=== PATIENT | female | born 1965 | race Hispanic/Latino ===

== ENCOUNTER 2016-12-17 19:01 | Inpatient (IN) | payer SELFPAY ==
[~2016-12-17 19:01] MED LIST: ISOVUE-370 76%-LOCM 1 ML ONE
[2016-12-17] MEDS ORDERED: Ondansetron HCl/PF 4 MG/2 ML Vial ONE (20:53)
--- NOTE | 2016-12-17 21:11 | RAD ---
AP VIEW OF THE CHEST: 12/17/16 INDICATION: History of nausea and right facial numbness and tingling with chest pain. FINDINGS: The lungs are clear. The cardiomediastinal silhouette is within normal limits. No acute osseous abno rmality is evident. IMPRESSION: No acute cardiopulmonary abnormality. POS: [facility]
[2016-12-17 21:23] LABS: #Basophils 0.1 thou/uL (0.0-0.2); #Eosinphils 0.2 thou/uL (0.0-0.7); #Lymphocytes 2.8 thou/uL (1.20-3.40); #Monocytes 0.6 thou/uL (0.11-0.59); #Neutrophils 8.7 thou/uL (1.40-6.50); %Basophils 0.5 % (0.0-1.0); %Eosinophils 1.6 % (0.0-10.0); %Lymphocytes 22.4 % (21.0-51.0); %Monocytes 5.2 % (0.0-10.0); Hematocrit 40.6 % (36.0-47.0); Mean Platelet Volume 8.4 fL (7.4-10.4); Red Blood Cell (RBC) Count 4.72 mill/uL (4.20-5.40); White Blood Cell (WBC) Count 12.4 thou/uL (4.8-10.8)
[2016-12-17 21:45] LABS: ALT (SGPT) 20 U/L (8-55); AST (SGOT) 16 U/L (5-34); Alkaline Phosphatase 95 U/L (40-150); Anion Gap 15 mmol/L (10-20); BUN (Urea Nitrogen) 9 mg/dL (7.0-18.7); Bilirubin, Total 0.4 mg/dL (0.2-1.2); CK (CPK) 64 U/L (29-168); Calc. Creatinine Clearance 0 mL/min (70-130); Calcium 9.3 mg/dL (7.8-10.44); Carbon Dioxide 24 mmol/L (22-29); Chloride 107 mmol/L (98-107); Estimated GFR-MDRD 90; Protein, Total 7.1 g/dL (6.0-8.3)
[2016-12-17 21:48] LABS: Troponin I Less than 0.010 ng/mL (< 0.028)
--- NOTE | 2016-12-17 22:25 | CT ---
NONCONTRAST CT OF THE BRAIN: 12/17/16 INDICATION: 51-year-old female with nausea and right sided facial numbness and tingling, now extending to involv e the entire aspect of the right side of the patient's body. Patient is having right parietal and oc cipital headaches. FINDINGS: No acute infarct, hemorrhage, or hydrocephalus is present. The septum pellucidum and third ventricle are midline. The skull and extracranial soft tissues are within normal limits. IMPRESSION: No acute intracranial abnormality. POS: [facility]
--- NOTE | 2016-12-17 23:34 | CT ---
CTA AORTIC DISSECTION PROTOCOL 12/17/16 INDICATION: Chest pain. TECHNIQUE: Multiple CTA images were obtained of the chest and abdomen utilizing a CTA dissection protocol. 3D r eformatted images were constructed from the raw data. FINDINGS: No acute aortic stenosis, occlusion, or aneurysmal formation is evident. The great vessels of the ne ck appear within normal limits. No central pulmonary embolus is evident. The lungs are clear. The celiac, SMA, and renal arteries are widely patent. 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 The I MA is patent. The common iliac artery is widely patent. There is fatty infiltration of the liver. Spleen, pancreas, adrenal glands, and kidneys are normal a ppearing. There is normal appendix in the right lower quadrant. No free fluid is evident. Scattered degenerative and osteoarthritic change. IMPRESSION: 1. No aortic stenosis, occlusion or aneurysmal formation demonstrated. 2. Fatty liver. 3. Colonic diverticulosis. POS: [facility]
[2016-12-18] MEDS ORDERED: Sodium Chloride 0.9% 1,000 ML IV SCH (00:30)
--- NOTE | 2016-12-18 00:43 | PDOC.EVN ---
Event Note - Event Note Event Note: [id number] h&p dictated 1. RT jaylen eheadache 2. uncontrolled htn 3. nausea plan see orders
[2016-12-18 01:23] VITALS: BMI 41.0
[2016-12-18] MEDS: traMADol HCl 50 MG TAB PO PRN ×2 (02:42→08:16)
--- NOTE | 2016-12-18 07:21 | HP ---
DATE OF ADMISSION: 12/18/2016 CHIEF COMPLAINT: Right-sided numbness, headache. HISTORY OF PRESENT ILLNESS: Patient is a 51-year-old female with no significant past medical history, now came to the hospital because of uncontrolled hypertension. Patient says that this last few days, she is having elevated blood pressure. Blood pressure at home around 160/93, and she is having headache. Headache is a dull, fullness kind of headache in right side of the face radiating to the occipital region, currently 3/10. Patient also complaints of right-sided facial numbness and fullness and right-sided body aches also. Denies any nausea and vomiting at this time, but complains of some nausea at home. Denies any fever, denies any chills, denies any chest pain. She complaints of dizziness as if room spinning around. Denies syncope. PAST MEDICAL HISTORY: None. PAST SURGICAL HISTORY: Tubal ligation. SOCIAL HISTORY: Denies smoking, denies alcohol, and denies any drugs. FAMILY HISTORY: Positive for heart problems. MEDICATIONS: Reviewed. REVIEW OF SYSTEMS: Constitutional: Denies any fever, denies any chills. Eyes : Denies vision problems. Ears: Denies any hearing loss. Neck: Denies any neck pain. Cardiovascular: Denies any chest pain, denies any palpations. Respiratory: Denies any cough, denies any sputum production. Gastrointestinal : Positive for nausea. Genitourinary: Denies dysuria. Musculoskeletal: Positive for right-sided body aches. Cranial nerve system: Positive for headache. Positive for dizziness. Psychiatric: Denies anxiety. Integumentary : Denies any rash. All other review of systems are reviewed and are negative. PHYSICAL EXAMINATION: CONSTITUTIONAL/VITAL SIGNS: At the time of H and P performed, blood pressure is 140/70, afebrile, respiration rate 18, pulse ox 97%. GENERAL: The patient appears comfortable. HEENT: Pupils are equal, round, and reactive. Anterior nares patent. Nose normal. Ears normal. Teeth intact. Tongue is moist. NECK: Supple, no JVD. CARDIOVASCULAR: S1, S2 present. Regular rate and rhythm. No murmurs, no rubs , no gallops. RESPIRATORY: No wheezing, no rhonchi. Breath sounds bilaterally. GASTROINTESTINAL: Abdomen is soft, nontender, no guarding, no organomegaly, no masses felt. MUSCULOSKELETAL: No edema. CRANIAL NERVE SYSTEM: Awake, follows commands. Strength intact. She complains of some numbness, but otherwise sensory intact. PSYCHIATRIC: Mood is appropriate at this time. INTEGUMENT: No rashes seen. LABORATORY DATA: At the time of H\T\P performed, white count 12.4, hemoglobin 13.4, platelet count is 309,000. BMP showed sodium 142, potassium 3.7, chloride of 104, CO2 of 24, BUN 9, creatinine 0.69. Creatine kinase 64, CK-MB 0.5, troponin less than 0.010. ASSESSMENT AND PLAN: The patient is a 51-year-old female. 1. Uncontrolled hypertension, new onset. Plan is to start the patient on Coreg 6.25 b.i.d. and also plan to start patient on hydralazine 25mg q.8 hours. We will monitor blood pressure closely. 2. Right-sided headache and numbness. Plan to do MRI brain and carotid ultrasound also, we will consult Neurology. Will monitor the patient closely. We will do neuro check q.[address] head, no acute stroke. 3. Nausea, p.r.n. antiemetics. The case was discussed in detail with the patient and patient's son over the phone also. MADAN
[2016-12-18] MEDS ORDERED: Heparin 5,000 UNITS/ML VIAL SC SCH (09:00)
[2016-12-18] MEDS ORDERED: Aspirin 81 mg Enteric Coated Tablet PO SCH (09:00)
[2016-12-18] MEDS ORDERED: Ondansetron HCl/PF 4 MG/2 ML Vial IVP PRN (09:10)
[2016-12-18] MEDS ORDERED: Ondansetron ODT 4 MG TAB PO PRN (09:10)
[2016-12-18] MEDS ORDERED: Promethazine HCl 25 MG in Sodium Chloride 0.9% 50 ML IVPB PRN (10:43)
[2016-12-18] MEDS ORDERED: diphenhydrAMINE HCl 50 MG/ML 1 ML VIAL IVP SCH (11:00)
[2016-12-18] MEDS ORDERED: Ketorolac Tromethamine 30 MG/ML VIAL IVP SCH (11:00)
--- NOTE | 2016-12-18 14:45 | PDOC.EVN ---
Event Note - Event Note Event Note: Patient seen and examined. Await MRI.
[2016-12-18 15:44] VITALS: BP 131/68; TEMP 97.8
--- NOTE | 2016-12-18 16:25 | MRI ---
PRE AND POSTCONTRAST ENHANCED MRI IMAGES OF THE BRAIN AND IACS 12/18/16 HISTORY: 51-year-old female with history of numbness, facial tingling, and right occipital and parietal heada ches. Multiplanar and multisequence pre and postcontrast enhanced MRI images of the brain and IACs demonst rate the brain to be unremarkable. No evidence of intracranial masses, hemorrhages, strokes or contu sions seen. Ventricles are of normal size. No evidence of masses or lesions seen in the internal aud itory canals. Vestibule and semicircular canals are unremarkable. Cochlea is unremarkable. No signif icant evidence of enhancing intracranial mass lesion seen. IMPRESSION: Unremarkable pre and postcontrast enhanced MRI images of the brain and IACs. POS: [facility]
[2016-12-18] MEDS ORDERED: Ketorolac Tromethamine 30 MG/ML VIAL IVP PRN (17:00)
[2016-12-18] MEDS ORDERED: Valproate Sodium 500 MG in Sodium Chloride 0.9% 100 ML IVPB SCH (17:00)
--- NOTE | 2016-12-18 17:08 | DIS ---
DATE OF DISCHARGE: 12/18/2016 DISCHARGE DISPOSITION: Home. FOLLOWUP: 1. Follow up with primary care physician, Dr. Deepti Chan in 1 week. Please note that patient has not seen primary care physician for a longtime. This will be a new PCP. 2. Follow up with Neurology as outpatient. ALLERGIES: The patient is allergic to DEMEROL, TYLENOL and ERYTHROMYCIN. The patient was seen and examined on the day of discharge. Denies any new complaints. Headache has somewhat improved after Toradol. BRIEF HOSPITAL COURSE: The patient is a 51-year-old female with no significant past medical history , who presented to the hospital with headache with right-sided numbness. Please refer to the histor y and physical dictated earlier today for further details. The patient was admitted to the hospital with a diagnosis of suspected stroke. An MRI of the brain was done that was negative for acute CVA. CT scan of the brain on admission was also negative. An echocardiogram has been done and report is pending at this time. Patient had mild leukocytosis at 1 2.4 with normal temperature and other vital signs. It is unlikely that the WBC counts are secondary to infection in origin. Her CT dissection protocol was also negative. She was evaluated by Neurol ogcassandra, Dr. Lundberg. According to Dr. Lundberg, symptoms are consistent with migraine. She has been cl eared by Neurology for discharge. The patient was advised to follow up with Neurology as outpatient . She was advised to monitor her blood pressure on a daily basis. DISCHARGE MEDICATIONS: 1. Amlodipine 2.5 mg daily. 2. Aspirin 81 mg daily. 3. Lipitor 10 mg daily. 4. Calcium 1 tablet daily. 5. Magnesium 1 tablet daily. 6. Multivitamin daily. 7. Clonidine as needed. IMPRESSION: 1. Right-sided headache with numbness secondary to suspected transient ischemic attack. MRI of the brain was negative. The patient will be started on low dose aspirin with statins. Lifestyle modif ication was emphasized. Her fasting lipid profile showed LDL of 102 with cholesterol 177, triglycer juna 146. 2. Suspected migraine. Patient was advised to follow up with Neurology as an outpatient. 3. Elevated blood pressure with no diagnosis of hypertension. Patient will monitor her blood press ure on a daily basis. She was even given a prescription for amlodipine if her blood pressure remain s elevated over 140. 4. Leukocytosis, unlikely to be infectious. 5. Chronic kidney disease stage 2. 6. Morbid obesity with a BMI of 41. Plan of care was discussed with the patient and the family at the bedside. They stated андрей g. The patient was advised to follow up on the echocardiogram report.
--- NOTE | 2016-12-18 17:34 | CON ---
DATE OF CONSULTATION: 12/18/2016 NEUROLOGY CONSULTATION CONSULTING PHYSICIAN: Hospitalist Service. IMPRESSION: Probable migraine. PLAN: 1. Toradol 30 mg IV. 2. Benadryl 25 mg IV. 3. The patient will be discharged home. HISTORY OF PRESENT ILLNESS: Ms. Huitron is a 51-year-old female with no past history oth er than some episodic headaches. She has been experiencing a more severe headache than her typical headaches that she has had in the past. She had some associated nausea, light sensitivity, sound se nsitivity, dizziness, and became concerned about the severity of the pain. She went and took blood pressure at the pharmacy and noted that the diastolic was a bit high for her at 92. She came into [facility] emergency room last night for evaluation. She had a CT of the brain done which was negative. Sh e also had a CT of the aorta, which was unremarkable. Her vital signs have been stable since admiss [facility]. She is afebrile. She threw up earlier this morning. She is still complaining of some headach e and dizziness. PAST MEDICAL HISTORY: Otherwise, negative. ALLERGIES: DEMEROL. FAMILY HISTORY: Noncontributory. SOCIAL HISTORY: No tobacco or alcohol use. REVIEW OF SYSTEMS: No other focal neurologic complaints. PHYSICAL EXAMINATION: GENERAL: She is an overweight middle-aged woman sitting at the bedside in mild distress. VITAL SIGNS: Blood pressure 108/82, pulse 73, respirations 14, and temperature 98.2. HEENT: Pupils equal and reactive. Conjunctivae clear. Oropharynx clear. NECK: Supple. NEUROLOGIC: She is alert and appropriate. Her speech is fluent and clear. Her exam is nonfocal. Reflexes were 1+. SUMMARY: Given the overall symptom complex with a negative CT scan and normal vital signs, I suspec t this is migraine. I can treat her and release.
[2016-12-18] MEDS ORDERED: Atorvastatin Calcium 40 MG TAB PO SCH (21:00)
[2016-12-19] MEDS ORDERED: Carvedilol 6.25 MG TAB PO SCH (08:00)
== END 2016-12-18 18:45 | disposition home or self-care (01) | DRG 69 ==
LOC: ERS 19:01 → 2SE 12-18 00:48
PROVIDERS: ADMIT Internal Medicine; ATTEND Internal Medicine
DX: G45.9 Transient cerebral ischemic attack, unspecified (principal); Z68.41 Body mass index [BMI] 40.0-44.9, adult; G43.909 Migraine, unspecified, not intractable, without status migrainosus; R03.0 Elevated blood-pressure reading, without diagnosis of hypertension; E66.01 Morbid (severe) obesity due to excess calories; N18.2 Chronic kidney disease, stage 2 (mild)
CPT/HCPCS: 36415; 70450; 70553; 71010; 71275; 80053; 80061; 82550; 82553; 84484; 85025; 85652; 86140; 93005; 93306; A4216; G9168-GN-CI; G9169-GN-CH; J1200; J1644; J1885; J2405; J2550; J7050

== ENCOUNTER 2018-01-26 16:55 | Emergency (ER) | payer SELFPAY ==
[2018-01-26] MEDS ORDERED: Ibuprofen 200 MG TAB ONE (17:34)
== END 2018-01-26 17:38 | disposition home or self-care (01) ==
LOC: ERS 16:55
DX: H60.91 Unspecified otitis externa, right ear (principal); I10 Essential (primary) hypertension
CPT/HCPCS: 99283

== ENCOUNTER 2019-02-01 18:31 | Observation (INO) | payer BC, SELFPAY ==
[2019-02-01] MEDS ORDERED: Ketamine 50 MG/ML (10ML VIAL) ONE (19:00)
[2019-02-01] MEDS ORDERED: Fentanyl 100 MCG/2 ML VIAL ONE (19:00)
[2019-02-01] MEDS ORDERED: Ondansetron PF 4 MG/2 ML Vial ONE (19:00)
--- NOTE | 2019-02-01 19:30 | RAD ---
EXAM: 2 views of the left ankle HISTORY: Ankle pain COMPARISON: None FINDINGS: 2 views of the left ankle shows a fracture of the medial malleolus and posterior malleolus of the tibia. There is subluxation of the tibiotalar joint. A distal fibular fracture is seen. Surrounding soft tissue swelling is seen. No degenerative changes are present. IMPRESSION: Fracture subluxation of the left ankle as above.
--- NOTE | 2019-02-01 19:48 | RAD ---
EXAM: 2 views of the left ankle HISTORY: Ankle fracture COMPARISON: None FINDINGS: 2 views of the left ankle shows the patient is status post interval reduction of the fractu re subluxation of the ankle joint. There is better alignment of the fracture and tibiotalar joint. IMPRESSION: Reduction of left ankle fracture
[2019-02-01 20:20] LABS: #Lymphocytes 1.7 thou/uL (1.20-3.40); #Monocytes 0.4 thou/uL (0.11-0.59); #Neutrophils 4.1 thou/uL (1.40-6.50); %Basophils 0.5 % (0.0-1.0); %Eosinophils 0.7 % (0.0-10.0); %Neutrophils 65.8 % (42.0-75.0); Hemoglobin 12.9 g/dL (12.0-16.0); Mean Corpuscular HGB CONC 32.9 g/dL (32.0-36.0); Mean Corpuscular Hemoglobin 28.4 pg (27.0-31.0); Mean Corpuscular Volume 86.3 fL (78.0-98.0); Mean Platelet Volume 8.9 fL (7.4-10.4); Platelet Count 238 thou/uL (130-400); RBC Distribution Width 13.3 % (11.5-14.5); Red Blood Cell (RBC) Count 4.55 mill/uL (4.20-5.40); White Blood Cell (WBC) Count 6.3 thou/uL (4.8-10.8)
[2019-02-01 20:29] LABS: INR-International Normal Ratio 0.9; PTT 26.3 SEC (22.9-36.1); Prothrombin Time 12.6 SEC (12.0-14.7)
--- NOTE | 2019-02-01 20:34 | RAD ---
EXAM: Single view of the chest HISTORY: Preoperative radiograph COMPARISON: 12/17/2016 FINDINGS: Single view of the chest shows a normal sized cardiomediastinal silhouette. There is no erika dence of consolidation, mass, or pleural effusion. The bones are unremarkable. IMPRESSION: No evidence of acute cardiopulmonary disease
[2019-02-01 20:42] LABS: ALT (SGPT) 19 U/L (8-55); AST (SGOT) 19 U/L (5-34); Alkaline Phosphatase 90 U/L (40-110); Anion Gap 18 mmol/L (10-20); BUN (Urea Nitrogen) 11 mg/dL (9.8-20.1); Bilirubin, Total 0.4 mg/dL (0.2-1.2); Calc. Creatinine Clearance 0 mL/min (70-130); Calcium 9.2 mg/dL (7.8-10.44); Carbon Dioxide 19 mmol/L (22-29); Chloride 108 mmol/L (98-107); Estimated GFR-MDRD 81; Globulin 2.8 g/dL (2.4-3.5); Glucose 113 mg/dL (70-105); Potassium 3.8 mmol/L (3.5-5.1); Protein, Total 6.8 g/dL (6.0-8.3); Sodium 141 mmol/L (136-145)
[2019-02-01] MEDS ORDERED: Dextrose 50% Abboject 50 ML SYRINGE SLOW IVP PRN (21:30)
[2019-02-01] MEDS ORDERED: Morphine 4 MG/ML VIAL SLOW IVP PRN (21:30)
[2019-02-01] MEDS ORDERED: Dextrose 5% in Water 1,000 ML IV PRN (21:30)
[2019-02-01] MEDS ORDERED: Sodium Chloride 0.9% 1,000 ML IV SCH (21:30)
[2019-02-01] MEDS ORDERED: hydrALAZINE 20 MG/ML VIAL SLOW IVP PRN (21:30)
[2019-02-01] MEDS ORDERED: Ondansetron PF 4 MG/2 ML Vial IVP PRN ×2 (21:30→21:35)
[2019-02-01] MEDS ORDERED: traMADol HCl 50 MG TAB PO PRN (21:35)
[2019-02-01] MEDS ORDERED: Cyclobenzaprine 10 MG TAB PO PRN (21:38)
[2019-02-01] MEDS: Lactated Ringer's 1,000 ML IV SCH (22:55)
[2019-02-01] MEDS: traMADol HCl 50 MG TAB PO PRN (22:55)
[2019-02-01 23:30] VITALS: BMI 31.6
[2019-02-01] MEDS: Ketorolac Tromethamine 30 MG/ML VIAL IVP SCH (23:46)
[2019-02-02] MEDS: Ketorolac Tromethamine 30 MG/ML VIAL IVP SCH ×4 (06:04→18:15)
[2019-02-02] MEDS ORDERED: CEFAZOLIN 2 GM in Premix Bag 1 BAG IVPB SCH (07:15)
--- NOTE | 2019-02-02 07:44 | HP ---
REQUESTING PHYSICIAN: Reed Donald MD CONSULTS: Champ Lott MD, Orthopedic Surgery. HISTORY OF PRESENT ILLNESS: This is a 53-year-old female, who presented to the emergency room with complaints of left ankle pain and deformity after falling while she was skating, participating in [employer]. The patient denies feeling weak , dizzy, or having any chest pain prior to falling. The patient denies hitting her head. The patient denies any other pain or injury. The patient last ate at approximately 5:00 p.m. today. The patient was evaluated in the emergency room and was found to have a left ankle fracture with subluxation. The patient was given conscious sedation with ketamine in the emergency room and her left ankle was reduced. The patient was then placed in a splint. The patient also received fentanyl and Zofran in the emergency room. REVIEW OF SYSTEMS: A 10-point review of systems is negative unless otherwise indicated in the above HPI. PAST MEDICAL HISTORY: Previous history of hypertension, not on any medications. HOME MEDICATIONS: Multivitamins only. PAST SURGICAL HISTORY: Tubal ligation. ALLERGIES: DEMEROL, ERYTHROMYCIN. SOCIAL HISTORY: Denies any drug use, denies any alcohol use, denies any tobacco use or smoking. OBJECTIVE: VITAL SIGNS: Blood pressure 138/78, pulse 68, respirations 20, temperature 98.6, SpO2 of 98% on room air. GENERAL: The patient is awake, alert, in no distress with minimal nausea after having conscious sedation. Middle-aged, well-appearing female. HEENT: Head is atraumatic, normocephalic. Normal range of motion of neck. Trachea midline. RESPIRATORY: Equal chest rise and fall. Good inspiratory and expiratory effort. Bilateral breath sounds clear. No wheezing, rales, or rhonchi. CARDIOVASCULAR: Regular rate, regular rhythm. No murmurs. ABDOMEN: Soft, nontender, nondistended. EXTREMITIES: Left lower extremity immobilized in a splint. Distal cap refill less than 2, normal sensation. Other extremities unremarkable. NEURO: No focal deficits. GCS 15. DIAGNOSTICS: 1. Left ankle x-ray, impression, fracture of the medial malleolus and posterior malleolus of the tibia. There is a subluxation of the tibiotalar joint. Distal fibular fracture is seen. Surrounding soft tissue swelling is seen. 2. Left ankle x-ray, post interval reduction of the fracture, subluxation of the ankle joint. Better alignment of the fracture and tibiotalar joint. 3. Chest x-ray, impression, no evidence of acute cardiopulmonary disease. LABORATORY DATA: WBC 6.3, RBC 4.55, hemoglobin 12.9, hematocrit 39.3, platelets 238. PT 12.6, INR 0.9, APTT 26.3. Sodium 141, potassium 3.8, chloride 108, creatinine 0.75, estimated GFR 81, BUN 11, glucose 113, calcium 9.2, AST 19, ALT 19, alkaline phos 90. A 12-lead EKG sinus rhythm, no ST or T-wave abnormalities. IMPRESSION: 1. Status post roller derby accident. 2. Left ankle fracture, status post reduction. 3. Acute traumatic pain. PLAN: We will admit the patient on the surgical floor. The patient will be n.p.o. after midnight and placed on IV maintenance fluids. Plan is for Dr. Lott to take patient to the OR for repair of the left ankle fracture in the morning. We will place a PT/OT consult to evaluate and treat postop. We will place the patient on a pain regimen. The patient most likely will be able to be discharged home after surgery. If pain is well controlled, the patient is able to ambulate safely. The plan was discussed with the patient and family, who agrees. The plan will be discussed with the attending after this dictation. Job ID: [id number] MTDD
[2019-02-02] MEDS: Lactated Ringer's 1,000 ML IV SCH ×2 (08:10→18:10)
--- NOTE | 2019-02-02 08:12 | CON ---
DATE OF CONSULTATION: 02/02/2019 This is Coco Thomas PA-C dictating a report for Champ Lott MD. REQUESTING PHYSICIAN: Trauma Services. CONSULTING PHYSICIAN: Dr. Cahmp Lott. REASON FOR CONSULTATION: Left ankle fracture. HISTORY OF PRESENT ILLNESS: This is a 53-year-old female, who presented to [facility] after an injury while roller derbying. The patient states that she went down and felt a pop in her left ankle. She was brought to our facility, where her main complaint was left ankle pain and deformity. Upon arrival in the emergency department, the patient was noted to have a left trimalleolar ankle fracture with subluxation. This was reduced by the emergency department physician and then splinted. Currently, at bedside, the patient states that she is comfortable in the splint. She denies any numbness or tingling. She denies any other injuries at the time of this fall. No head injury. No loss of consciousness. PAST MEDICAL HISTORY: Includes hypertension as well as gastroesophageal reflux disease. PAST SURGICAL HISTORY: Tubal ligation. SOCIAL HISTORY: The patient lives at home with family. She denies any alcohol, tobacco, or drug use. FAMILY HISTORY: Reviewed and noncontributory. ALLERGIES: INCLUDE DEMEROL AND ERYTHROMYCIN. REVIEW OF SYSTEMS: A 10-point review of systems conducted and otherwise negative except for stated above. PHYSICAL EXAMINATION: VITAL SIGNS: Temperature 98.3, pulse of 65, respiratory rate of 16, blood pressure of 131/67, and O2 saturations of 94 on room air. GENERAL: The patient is awake and alert. She is in no apparent distress. She is lying supine in bed. Her daughter is present at bedside. She is pleasant and cooperative with exam findings today. HEENT: Head is normocephalic and atraumatic. NECK: Supple. Trachea midline. LUNGS: Breathing nonlabored. EXTREMITIES: The left lower extremity was evaluated. There is a posterior and stirrup splint present to approximately mid calf. The patient is able to move her toes. She has intact sensation and capillary refill is 3 seconds. All other extremities were evaluated. No other injuries or acute deformities are noted. IMAGING STUDIES: Radiographic imaging available for review includes views of the ankle upon arrival to the emergency department showing a subluxed trimalleolar ankle fracture. Postreduction films show overall improved alignment of this trimalleolar ankle fracture. ASSESSMENT: Left ankle trimalleolar ankle fracture. PLAN: The patient has been n.p.o. overnight. Our plan is to take her to the OR for open reduction and internal fixation of this left ankle fracture. This is in order to restore function and promote ambulation. Risks, benefits, and alternatives discussed at length with the patient and her family today at bedside. They verbalized understanding and are amenable to this plan of care. We will proceed with surgery later this morning. Postoperatively, she will work with physical therapist for nonweightbearing to the left lower extremity. When she is able to ambulate and receives her IV postoperative antibiotics, she will be able to be discharged home. Once again, they are amenable to this plan of care. Job ID: [id number] MTDD
[2019-02-02] MEDS ORDERED: Midazolam HCl 2 mg/2 ml Vial ONE (08:26)
[2019-02-02] MEDS ORDERED: Fentanyl 100 MCG/2 ML VIAL ONE ×4 (08:26→13:50)
[2019-02-02] MEDS: Polyethylene Glycol 3350 17 GM Packet PO SCH (09:03)
[2019-02-02] MEDS ORDERED: Zolpidem Tartrate 5 MG TAB PO PRN (09:46)
[2019-02-02] MEDS ORDERED: traMADol HCl 50 MG TAB PO PRN ×2 (09:46)
[2019-02-02] MEDS ORDERED: Ropivacaine 0.2% 550 ML 550 ML NERVE BLCK SCH (09:46)
[2019-02-02] MEDS ORDERED: HYDROcodone/Acetaminophen 10/325 mg Tablet PO PRN ×2 (09:46)
[2019-02-02] MEDS ORDERED: Promethazine HCl 25 MG/ML VIAL IM PRN ×2 (09:46→13:19)
[2019-02-02] MEDS ORDERED: Ondansetron PF 4 MG/2 ML Vial IVP PRN (09:46)
[2019-02-02] MEDS ORDERED: Fentanyl 100 MCG/2 ML VIAL SLOW IVP PRN (09:47)
[2019-02-02] MEDS ORDERED: PHENYLEPHRINE-NS 100 MCG/ML 10 ML SYRINGE ONE (10:10)
[2019-02-02] MEDS ORDERED: Lidocaine 1% PF 5 ML VIAL ONE (10:10)
[2019-02-02] MEDS ORDERED: Ropivacaine 0.5% HCl/PF (150 MG/30 ML VIAL) ONE (10:10)
[2019-02-02] MEDS ORDERED: PROPOFOL 200 MG/20 ML VIAL ONE (10:10)
[2019-02-02] MEDS ORDERED: ePHEDrine/0.9% NaCl/PF SYRINGE 50 mg/10 ml ONE (10:10)
[2019-02-02] MEDS ORDERED: Ondansetron PF 4 MG/2 ML Vial ONE (10:10)
[2019-02-02] MEDS ORDERED: Bupivacaine HCl 0.5%/Epinephrine 1:200,000/PF 30 ml Vial ONE (10:10)
[2019-02-02] MEDS ORDERED: Dexamethasone 20 MG/5 ML VIAL ONE (10:10)
[2019-02-02] MEDS ORDERED: Neomycin-Polymyxin 1 ML AMP ONE (11:40)
--- NOTE | 2019-02-02 13:05 | RAD ---
EXAM: 3 views of the left ankle HISTORY: Ankle fracture COMPARISON: 02/01/2019 FINDINGS: 3 views of the left ankle shows the patient is status post ORIF of the distal fibula with a plate and screws. 2 screws span the fracture of the medial malleolus. There is normal alignment of the ankle mortise. No perihardware lucency is seen. IMPRESSION: Status post ORIF of left ankle fracture.
[2019-02-02] MEDS ORDERED: Ondansetron HCl/PF 4 MG/2 ML Vial IVP PRN (13:19)
[2019-02-02] MEDS ORDERED: Promethazine HCl 25 MG/ML VIAL SLOW IVP PRN (13:19)
[2019-02-02] MEDS: traMADol HCl 50 MG TAB PO PRN (15:04)
--- NOTE | 2019-02-02 15:59 | PRG ---
DATE OF SERVICE: 02/02/2019 SUBJECTIVE: The patient was seen this afternoon postop after fixation of a left ankle fracture. At the time of my evaluation, the patient reported her pain was 8/10, and her block had recently been increased to her lower extremity. She did report she would like additional pain medications and this was passed on to nursing. OBJECTIVE: VITAL SIGNS: Temperature 98.3, pulse 65, respirations 16, oxygen saturation 94% on room air, and blood pressure 131/67. GENERAL: Well-appearing middle-aged female, lying in bed with no signs of acute distress. PULMONARY: Equal chest rise and fall. Clear breath sounds bilaterally. No signs of acute respiratory distress. CARDIAC: Regular rate and rhythm. No murmurs, gallops, or rubs. GI: Abdomen is soft, nontender, nondistended. EXTREMITIES: 2+ pulses in all extremities. Gross motor and sensation are intact. Dressing to left lower extremity is clean, dry, and intact. NEURO: GCS is 15. LABORATORY FINDINGS: There are no new laboratory findings to discuss. DIAGNOSTIC FINDINGS: There are no new diagnostic findings to discuss. ASSESSMENT: 1. Status post fall during roller-skating. 2. Left ankle fracture, status post repair. 3. History of hypertension, not on any medications. 4. Acute traumatic pain. PLAN: We will restart the patient on a regular diet. We will discontinue her IV fluids once she is taking in food regularly. She will continue to work with Physical and Occupational Therapy. The patient reports she is not allergic to Tylenol as previously reported in the EMR. We will start the patient on Ofirmev. She also has a p.r.n. fentanyl ordered as well as p.r.n. morphine. She will receive 100 mg of tramadol at this time. We will continue to reassess pain throughout the night. She will likely be discharged tomorrow if she can get around safely with either crutches or a walker and if her pain is well controlled. This patient was discussed with Dr. Valle before this dictation. Job ID: [id number]
[2019-02-02] MEDS: Acetaminophen 1,000 MG in Premix Bag 1 BAG IVPB SCH (18:09)
[2019-02-02] MEDS ORDERED: Scopolamine 1.5 mg/72 hour Patch TD SCH (22:00)
[2019-02-03] MEDS: Ketorolac Tromethamine 30 MG/ML VIAL IVP SCH ×4 (00:01→17:51)
--- NOTE | 2019-02-03 00:08 | PRG ---
DATE OF SERVICE: 02/02/2019 SUBJECTIVE: The patient was seen this evening on the surgical floor. The patient is awake, alert, in no distress. The patient is postop fixation of her left ankle fracture. The patient reports some mild nausea and dizziness. The patient's pain is well controlled and does not have any pain with the block in place. OBJECTIVE: VITAL SIGNS: Stable, afebrile. GENERAL: Well-appearing, middle-aged female, lying in hospital bed, no acute distress. PULMONARY: Equal chest rise and fall. Breath sounds clear bilateral. CARDIAC: Regular rate, regular rhythm. EXTREMITIES: 2+ pulses in all extremities. Left lower extremity splint in place; clean, dry, and intact. NEUROLOGIC: GCS 15. ASSESSMENT: 1. Status post fall during roller derby skating. 2. Left ankle fracture, status post repair. 3. History of hypertension, not on any medications. 4. Acute traumatic pain. PLAN: Continue regular diet and pain regimen. We will continue to have patient work with physical and occupational therapy. We will add a scopolamine patch as the patient had complaints of nausea and some dizziness. The patient will likely be discharged home tomorrow if her pain is controlled. Job ID: [id number]
[2019-02-03 04:21] LABS: #Lymphocytes 2.1 thou/uL (1.20-3.40); #Monocytes 0.6 thou/uL (0.11-0.59); #Neutrophils 4.7 thou/uL (1.40-6.50); %Basophils 0.1 % (0.0-1.0); %Eosinophils 0.2 % (0.0-10.0); %Lymphocytes 28.9 % (21.0-51.0); %Monocytes 8.1 % (0.0-10.0); %Neutrophils 62.7 % (42.0-75.0); Hemoglobin 10.8 g/dL (12.0-16.0); Mean Corpuscular HGB CONC 32.4 g/dL (32.0-36.0); Mean Corpuscular Hemoglobin 28.2 pg (27.0-31.0); Mean Platelet Volume 9.2 fL (7.4-10.4); Platelet Count 226 thou/uL (130-400); RBC Distribution Width 13.2 % (11.5-14.5); Red Blood Cell (RBC) Count 3.83 mill/uL (4.20-5.40); White Blood Cell (WBC) Count 7.4 thou/uL (4.8-10.8)
[2019-02-03 04:37] LABS: Anion Gap 12 mmol/L (10-20); BUN (Urea Nitrogen) 15 mg/dL (9.8-20.1); Calc. Creatinine Clearance 129 mL/min (70-130); Calcium 8.8 mg/dL (7.8-10.44); Carbon Dioxide 24 mmol/L (22-29); Chloride 106 mmol/L (98-107); Estimated GFR-MDRD Greater than 90; Glucose 103 mg/dL (70-105); Magnesium 1.9 mg/dL (1.6-2.6); Phosphorus 4.8 mg/dL (2.3-4.7); Sodium 138 mmol/L (136-145)
[2019-02-03] MEDS: Lactated Ringer's 1,000 ML IV SCH (04:45)
[2019-02-03] MEDS: Acetaminophen 1,000 MG in Premix Bag 1 BAG IVPB SCH ×3 (05:24→11:43)
[2019-02-03] MEDS: Polyethylene Glycol 3350 17 GM Packet PO SCH (08:09)
[2019-02-03] MEDS ORDERED: Aspirin 81 mg Enteric Coated Tablet PO SCH (09:00)
[2019-02-03 11:03] VITALS: TEMP 98.4
[2019-02-03 15:51] VITALS: BP 135/81
--- NOTE | 2019-02-04 02:05 | DIS ---
DATE OF ADMISSION: 02/01/2019 DATE OF DISCHARGE: 02/03/2019 CONSULTING PHYSICIAN: Champ Lott MD, of Orthopedic Surgery. PROCEDURES PERFORMED: The patient went to the OR on February 02, 2019, for fixation of a left ankle fracture with Orthopedic Surgery. HOSPITAL COURSE: The patient is a 53-year-old female, who presented to the emergency department after she twisted her ankle while playing [employer] It was determined that she had a left ankle fracture and went to the OR the next day with Orthopedic Surgery for fixation of the injury. Postoperatively, the patient had significant pain and spent another night in the hospital. On the day of discharge, the patient's pain was well controlled. She was tolerating a regular diet. She was able to work with Physical Therapy and get around well with a walker. She was discharged home. She has family support. She was voiding without difficulties and tolerating regular diet. DISCHARGE DISPOSITION: Home. DISCHARGE CONDITION: Satisfactory. PHYSICAL EXAMINATION: VITAL SIGNS: Blood pressure 98.7, pulse 71, respirations 18, oxygen saturation 98% on room air, and blood pressure 135/81. GENERAL: Well-appearing middle-aged female, sitting up in bed with no signs of acute distress. PULMONARY: Equal chest rise and fall. Clear breath sounds bilaterally. No signs of acute respiratory distress. CARDIAC: Regular rate and rhythm. No murmurs, gallops, or rubs. GASTROINTESTINAL: Abdomen is soft, nontender, and nondistended. EXTREMITIES: 2+ pulses in all extremities. Gross motor and sensation are intact. The patient with splint to left lower extremity that is clean, dry, and intact. NEUROLOGIC: GCS is 15. DISCHARGE INSTRUCTIONS: The patient is discharged to home, nonweightbearing left lower extremity. Activity as tolerated. Regular diet with a walker. DISCHARGE MEDICATIONS: 1. Tylenol. 2. Aspirin. 3. Flexeril. 4. Ibuprofen. 5. MiraLAX. 6. Tramadol. FOLLOWUP APPOINTMENTS: The patient is to follow up with Dr. Lott in clinic. No followup needed with Trauma Surgery. This is a summary of the patient's hospitalization. For full details, please see her medical record in its entirety. Job ID: [id number]
--- NOTE | 2019-02-05 13:48 | OP ---
DATE OF PROCEDURE: 02/02/2019 PREOPERATIVE DIAGNOSIS: Left trimalleolar ankle fracture. POSTOPERATIVE DIAGNOSIS: Left trimalleolar ankle fracture. PROCEDURE PERFORMED: Open reduction and internal fixation of left trimalleolar ankle fracture. ANESTHESIA: General. VP TRANSPORTATION: Coco Thomas PA-C TOURNIQUET TIME: 44 minutes at 300 mmHg. IMPLANT: Synthes 7-hole 1/3 tubular plate with combination of cortical and cancellous screws, as well as two partially-threaded 4.0 mm cancellous screws for the medial malleolus. COMPLICATIONS: None. DRAINS: None. SPECIMEN: None. OUTCOME: Near-anatomic alignment. INDICATIONS FOR PROCEDURE: The patient is a 53-year-old lady, who is status post twisting injury to the left ankle during [employer] training. She sustained a fracture dislocation of the left ankle, which was treated with a closed reduction in the emergency room with Dr. Reed Donald. However, due to the nature of her fracture, now scheduled for surgical stabilization. Informed consent has been obtained. I believe all questions have been answered. DESCRIPTION OF PROCEDURE: The patient was brought to the operating room and a time-out performed followed by induction of general anesthesia. The patient was positioned supine on the OR table and a sterile prep and drape was performed of the left lower extremity. The limb was then exsanguinated with Esmarch bandage, tourniquet inflated to 300 mmHg. A vertical incision was made over the lateral malleolus after skin was sharply incised. Dissection was carried down bluntly to the underlying fracture. The fracture was reduced and held in place with a bone tenaculum and then an anterior to posterior interfragmentary compression screw was applied in standard fashion. This was then followed by application of a 7-hole 1/3 tubular plate to the lateral cortex of the distal fibula with 3 cancellous screws distally and 3 cortical screws proximal to the fracture line. Following this, a curvilinear incision was made medially after skin sharply incised. Dissection was carried down bluntly exposing the medial malleolar fracture and taking care not to injure the vein. The fracture edges were then freed of periosteum and then the fracture reduced and held in place with a bone tenaculum and then, two 45 mm long 4.0 cancellous screws were passed from the tip of the medial malleolus across the fracture in the distal tibial metaphysis. At the completion of this, AP, lateral and mortise x-ray of the ankle was obtained, which showed anatomic alignment of the medial and lateral malleolus and the posterior malleolus reduced to an anatomic position as well. The 2 incisions were then irrigated with bulb syringe, then closed in layers with 0 Vicryl deep followed by 2-0 Vicryl and then nylon for the skin. Xeroform gauze, Webril, and fiberglass splint was applied to the ankle and the patient was transferred to recovery room in stable condition. There were no complications. She tolerated the procedure well. Job ID: [id number]
--- NOTE | 2019-02-05 16:53 | EKG ---
Test Reason : Blood Pressure : / mmHG Vent. Rate : 045 BPM Atrial Rate : 045 BPM P-R Int : 132 ms QRS Dur : 084 ms QT Int : 466 ms P-R-T Axes : 057 040 043 degrees QTc Int : 403 ms Sinus bradycardia Otherwise normal ECG When compared with ECG of 01-FEB-2019 20:15, (Unconfirmed) No significant change was found Confirmed by DR. Mani TELLO ([id number]) on 02/05/2019 4:53:40 PM Referred By: PAYAL Confirmed By:DR. Mani TELLO
== END 2019-02-03 18:45 | disposition home or self-care (01) ==
LOC: ERS 18:31 → SURG B 22:19
PROVIDERS: ADMIT Specialist; ATTEND Specialist
PROC: 0QSK04Z Reposition Left Fibula with Internal Fixation Device, Open Approach (ICD-10-PCS; principal; 2019-02-03)
PROC: 0QSH04Z Reposition Left Tibia with Internal Fixation Device, Open Approach (ICD-10-PCS; 2019-02-03)
PROC: 0QSH04Z Reposition Left Tibia with Internal Fixation Device, Open Approach (ICD-10-PCS; 2019-02-03)
DX: S82.852A Displaced trimalleolar fracture of left lower leg, initial encounter for closed fracture (principal); G89.11 Acute pain due to trauma; I10 Essential (primary) hypertension; Z30.2 Encounter for sterilization; Z88.1 Allergy status to other antibiotic agents; Z88.5 Allergy status to narcotic agent; X50.1XXA Overexertion from prolonged static or awkward postures, initial encounter; Y93.51 Activity, roller skating (inline) and skateboarding
CPT/HCPCS: 27810; 36415; 71045; 76000; 80048; 80053; 83735; 84100; 85025; 85610; 85730; 93005; 93010; 96361; 96374; 96375; 96376; 99152; A4306; C1713; G0378; J0131; J0670; J0690; J1100; J1885; J2001; J2250; J2270; J2405; J2704; J2795; J3010

== ENCOUNTER 2019-05-18 21:32 | Emergency (ER) | payer BC ==
[2019-05-18 22:06] LABS: Bacteria/HPF 3+ HPF (None Seen); Bilirubin Negative (Negative); Blood, Urine Negative (Negative); Clarity Turbid (Clear); Glucose, Urine (Dipstick) Normal (Negative); Leukocyte Negative Leu/uL (Negative); Mucous/LPF 1+ LPF (<2+); Nitrite Negative (Negative); Protein, Urine (Dipstick) 30 mg/dL (Neg-Trace); Urobilinogen Normal mg/dL (Less than 2); WBC/HPF 0-3 HPF (0-3)
[2019-05-18 22:13] LABS: RBC/HPF 0-3 HPF (0-3)
== END 2019-05-18 22:32 | disposition home or self-care (01) ==
LOC: ERS 21:32
DX: N39.0 Urinary tract infection, site not specified (principal); I10 Essential (primary) hypertension
CPT/HCPCS: 81003; 81015; 99284

== ENCOUNTER 2021-01-10 15:14 | Emergency (ER) | payer BC, SELFPAY ==
[2021-01-10 15:57] LABS: Bilirubin Negative (Negative); Blood, Urine 1+ (Negative); Clarity Turbid (Clear); Glucose, Urine (Dipstick) Normal (Negative); Ketone, Urine Negative (Negative); Leukocyte 500 Leu/uL (Negative); Nitrite Negative (Negative); Protein, Urine (Dipstick) 30 mg/dL (Neg-Trace); Specific Gravity, Urine 1.033 (1.002-1.036); Urobilinogen Normal mg/dL (Less than 2); pH, Urine 5.5 (5.0-9.0)
[2021-01-10 16:05] LABS: WBC/HPF 21-50 HPF (0-3)
[2021-01-10 16:06] LABS: Bacteria/HPF 2+ HPF (None Seen)
[2021-01-10] MEDS ORDERED: Ketorolac Tromethamine 30 MG/ML VIAL ONE (17:02)
[2021-01-10 17:10] LABS: #Basophils 0.1 thou/uL (0.0-0.2); #Eosinphils 0.1 thou/uL (0.0-0.7); #Lymphocytes 2.9 thou/uL (1.20-3.40); #Monocytes 0.7 thou/uL (0.11-0.59); #Neutrophils 6.1 thou/uL (1.40-6.50); %Basophils 0.7 % (0.0-1.0); %Eosinophils 1.4 % (0.0-10.0); %Lymphocytes 29.5 % (21.0-51.0); %Monocytes 6.9 % (0.0-10.0); %Neutrophils 61.5 % (42.0-75.0); Hemoglobin 14.7 g/dL (12.0-16.0); Mean Corpuscular HGB CONC 33.6 g/dL (32.0-36.0); Mean Corpuscular Hemoglobin 29.8 pg (27.0-31.0); Mean Corpuscular Volume 88.7 fL (78.0-98.0); Mean Platelet Volume 9.1 fL (7.4-10.4); Platelet Count 319 thou/uL (130-400); RBC Distribution Width 12.6 % (11.5-14.5); Red Blood Cell (RBC) Count 4.92 mill/uL (4.20-5.40)
[2021-01-10 17:31] LABS: ALT (SGPT) 16 U/L (8-55); AST (SGOT) 14 U/L (5-34); Albumin 4.3 g/dL (3.5-5.0); Alkaline Phosphatase 110 U/L (40-110); Anion Gap 12 mmol/L (10-20); BUN (Urea Nitrogen) 10 mg/dL (9.8-20.1); Bilirubin, Total 0.4 mg/dL (0.2-1.2); Calc. Creatinine Clearance 0 mL/min (70-130); Calcium 9.7 mg/dL (7.8-10.44); Carbon Dioxide 22 mmol/L (22-29); Chloride 109 mmol/L (98-107); Globulin 2.8 g/dL (2.4-3.5); Glucose 86 mg/dL (70-105); Potassium 4.3 mmol/L (3.5-5.1); Protein, Total 7.1 g/dL (6.0-8.3); Sodium 139 mmol/L (136-145)
[2021-01-10] MEDS ORDERED: cefTRIAXone\\ROCEPHIN 1 GM VIAL ONE (17:36)
== END 2021-01-10 18:54 | disposition home or self-care (01) ==
LOC: EEVIPCON 15:14 → ERS 15:14
DX: N10 Acute pyelonephritis (principal); I10 Essential (primary) hypertension; Z79.899 Other long term (current) drug therapy
CPT/HCPCS: 36415; 74176; 80053; 81003; 81015; 83605; 85025; 87040; 87086; 94760; 96365; 96375; J0696; J1885

== ENCOUNTER 2021-02-25 06:01 | Emergency (ER) | payer SELFPAY ==
[2021-02-25] MEDS ORDERED: Boostrix 0.5 ML (Tdap) VIAL ONE (06:44)
[2021-02-25] MEDS ORDERED: Lidocaine 1% w/Epinephrine 1:100K 20 ML VIAL ONE (06:48)
== END 2021-02-25 07:24 | disposition home or self-care (01) ==
LOC: ERS 06:01
DX: L02.01 Cutaneous abscess of face (principal); L03.211 Cellulitis of face; I10 Essential (primary) hypertension; G43.909 Migraine, unspecified, not intractable, without status migrainosus
CPT/HCPCS: 10060; 90471; 90715